=== PATIENT | male | born 1960 | race Caucasian/White ===

== ENCOUNTER 2022-03-08 05:51 | Day surgery (SDC) | payer OTHER ==
[~2022-03-08] VITALS: Ht 177.8 cm; Wt 125.0 kg
[~2022-03-08 05:51] MED LIST: AMLO-257 PO; ASPI-1450 PO; ATOR20TA86 PO; CHOL500043 PO; DAPA10TA PO; FLEC50 PO; LOSA-382 PO; METF-1185 PO; METO-558 PO; MULT-1297 PO; PANT-31 PO; PREG75 PO; RIVA20TA PO; SODIUM CHLORIDE 0.9% 1,000 ML IV ONE; SODIUM CHLORIDE 0.9% 1,000 ML ONE; TERB250T90 PO
[2022-03-08] MEDS ORDERED: SODIUM BICARBONATE 50 MEQ/50 ML VIAL ONE (07:03)
[2022-03-08] MEDS ORDERED: LIDOCAINE/PF 1% 30 ML VIAL ONE (07:03)
[2022-03-08] MEDS ORDERED: HEPARIN SODIUM 1000 UNITS/NS 1,000 ML ONE (07:04)
[2022-03-08] MEDS ORDERED: DiphenhydrAMINE HCL 50 MG CAPSULE ONE (07:04)
[2022-03-08] MEDS ORDERED: ASPIRIN 81 MG CHEWABLE TABLET ONE (07:05)
[2022-03-08] MEDS ORDERED: DIAZEPAM 5 MG TABLET ONE (07:05)
[2022-03-08] MEDS ORDERED: IOHEXOL 300 MG/ML 50 ML VIAL ONE ×4 (07:06)
[2022-03-08 07:16] LABS: GLUCOMETER DEV NAME(LOC) SDS.; GLUCOSE,POINT OF CARE 144 MG/DL (70-110)
[2022-03-08] MEDS ORDERED: ASPIRIN 81 MG CHEWABLE TABLET PO ONE (07:30)
[2022-03-08] MEDS ORDERED: DiphenhydrAMINE HCL 50 MG CAPSULE PO ONE (07:30)
[2022-03-08] MEDS ORDERED: DIAZEPAM 5 MG TABLET PO ONE (07:30)
[2022-03-08] MEDS ORDERED: FentaNYL CITRATE PF 100 MCG/2 ML VIAL ONE ×3 (08:00→09:08)
[2022-03-08] MEDS ORDERED: MIDAZOLAM HCL 2 MG/2 ML VIAL ONE ×3 (08:00→09:08)
[2022-03-08] MEDS ORDERED: 0.9% SODIUM CHLORIDE 10 ML SYRINGE IVP ONE (08:00)
[2022-03-08 08:04] VITALS: BP 144/74
[2022-03-08] MEDS ORDERED: MIDAZOLAM HCL 2 MG/2 ML VIAL IVP ONE ×5 (08:30→09:30)
[2022-03-08] MEDS ORDERED: FentaNYL CITRATE PF 100 MCG/2 ML VIAL IVP ONE ×5 (08:30→09:30)
[2022-03-08] MEDS ORDERED: HEPARIN SODIUM 1000 UNITS/NS 1,000 ML IARTER ONE (08:30)
[2022-03-08] MEDS ORDERED: LIDOCAINE 1% 30 ML/SOD BICARB 8.4% 4 ML SQ ONE (08:30)
[2022-03-08] MEDS ORDERED: IOHEXOL 300 MG/ML 50 ML VIAL IARTER ONE ×2 (08:30→09:30)
[2022-03-08] MEDS ORDERED: HEPARIN SODIUM,PORCINE 5,000 UNITS/ML VIAL IVP ONE (08:45)
[2022-03-08] MEDS ORDERED: CLOPIDOGREL BISULFATE 75 MG TABLET PO ONE (09:45)
[2022-03-08 09:49] VITALS: BP 117/76
== END 2022-03-08 15:10 | disposition home or self-care (01) ==
LOC: SDS 05:51
PROVIDERS: ATTEND Internal Medicine Interventional Cardiology
DX: I70.211 Atherosclerosis of native arteries of extremities with intermittent claudication, right leg (principal); I71.4 Abdominal aortic aneurysm, without rupture; I48.91 Unspecified atrial fibrillation; I10 Essential (primary) hypertension; I25.10 Atherosclerotic heart disease of native coronary artery without angina pectoris; E66.01 Morbid (severe) obesity due to excess calories; E11.9 Type 2 diabetes mellitus without complications; Z98.890 Other specified postprocedural states; Z95.5 Presence of coronary angioplasty implant and graft
CPT/HCPCS: 37221; 82962; 99152; 99153; 93005; 37252; 75630; C1757; C1760; C1874; C1725; J3010; J1644 ×2; J3490 ×2; J2250; J7030; Q9967; 36200; 37205; 75716; 75960; 75962; Z7610